=== PATIENT | male | born 1925 | race Caucasian/White ===

== ENCOUNTER 2017-05-01 10:53 | Emergency (ER) | payer OTHER, MEDICARE ==
[~2017-05-01] VITALS: Ht 177.8 cm; Wt 86.0 kg
[2017-05-01 10:56] VITALS: Ht 177.8 cm; Wt 86.0 kg
[2017-05-01] MEDS ORDERED: CEFTRIAXONE 1 GM/50 ML (PMX) 50 ML IVPB STA (11:20)
[2017-05-01] MEDS ORDERED: SODIUM CHLORIDE 0.9% 1L BAG IV* STA (11:20)
[2017-05-01] MEDS ORDERED: AZITHROMYCIN 500MG/NS (PMX) 250 ML IV STA (11:20)
[2017-05-01] MEDS ORDERED: ACETAMINOPHEN 500 MG TAB PO STA (11:42)
[2017-05-01 11:58] LABS: ADD UMIC YES; UR ASCORBIC ACID NEGATIVE (NEGATIVE); UR BILIRUBIN (Dip) NEGATIVE (NEGATIVE); UR BLOOD (Dip) 1+ mg/dL (NEGATIVE); UR CLARITY CLEAR (CLEAR); UR COLOR YELLOW (YELLOW); UR GLUCOSE (Dip) NEGATIVE (NEGATIVE); UR KETONES (Dip) NEGATIVE (NEGATIVE); UR LEUKOCYTE ESTERASE (Dip) TRACE Leu/ul (NEGATIVE); UR NITRITE (Dip) NEGATIVE (NEGATIVE); UR RBC 1 /HPF (0-5); UR SPECIFIC GRAVITY (Dip) 1.015 (1.003-1.030); UR TOTAL PROTEIN (Dip) 1+ mg/dl (NEGATIVE); UR UROBILINOGEN (Dip) NEGATIVE (NEGATIVE)
[2017-05-01 11:58] LABS: BASOPHILS % 0.3 % (0.0-2.0); EOSINOPHILS % 0.5 % (0.0-7.0); HEMATOCRIT 33.4 % (42.0-52.0); HEMOGLOBIN 11.2 g/dl (14.0-18.0); LYMPHOCYTES # 0.7 10^3/ul (0.8-2.9); LYMPHOCYTES % 8.5 % (15.0-51.0); MEAN CORPUSCULAR HEMOGLOBIN 29.7 pg (29.0-33.0); MEAN CORPUSCULAR HGB CONC 33.5 g/dl (32.0-37.0); MEAN CORPUSCULAR VOLUME 88.6 fl (82.0-101.0); MEAN PLATELET VOLUME 10.4 fl (7.4-10.4); MONOCYTE # 0.6 10^3/ul (0.3-0.9); MONOCYTES % 7.4 % (0.0-11.0); NEUTROPHIL # 6.5 10^3/ul (1.6-7.5); NEUTROPHILS % 82.9 % (39.0-77.0); PLATELET COUNT 131 10^3/UL (140-415); RED BLOOD COUNT 3.77 10^6/ul (4.70-6.10); RED CELL DISTRIBUTION WIDTH 14.4 % (11.5-14.5); WHITE BLOOD COUNT 7.8 10^3/ul (4.8-10.8)
--- NOTE | 2017-05-01 12:07 | RADRPT ---
PROCEDURE: XR Chest. CLINICAL INDICATION: Sepsis. TECHNIQUE: Single frontal view. COMPARISON: None. FINDINGS: The lungs are clear. The heart is mildly enlarged. There is no pleural effusion. There is no pneumothorax. IMPRESSION: 1. Mild cardiomegaly. 2. Otherwise unremarkable chest radiograph. RPTAT: QQ .Chon Castillo MD, MD Date Time Electronically viewed and signed by .Chon Castillo MD, MD on 05/01/2017 12:07 .R/
[2017-05-01 12:20] LABS: ALBUMIN 4.3 g/dl (3.3-4.9); ALBUMIN/GLOBULIN RATIO 1.19; BILIRUBIN,INDIRECT 0.3 mg/dl (0-1.1); BILIRUBIN,TOTAL 0.3 mg/dl (0.2-1.3); CALCIUM 9.3 mg/dl (8.4-10.2); CREATININE 2.12 mg/dl (0.61-1.24); POTASSIUM 4.8 mmol/L (3.5-5.1); TOTAL PROTEIN 7.9 g/dl (6.1-8.1)
[2017-05-01 12:30] LABS: TROPONIN-I 0.016 ng/ml (0.00-0.12)
[2017-05-01] MEDS ORDERED: OSELTAMIVIR 75 MG CAP PO ONE (12:30)
[2017-05-01] MEDS ORDERED: OSLT75C PO (14:29)
[2017-05-01] MEDS ORDERED: ACET500C5 PO (14:29)
--- NOTE | 2017-05-01 14:33 | ERD ---
ER Documentation Chief Complaint Chief Complaint bib ba 83 from day care for fever , chills HPI 89-year-old male with no significant past medical history presenting to the ER with fever and chills. He has had an associated cough with runny nose since yesterday. He denies any associated symptoms such as chest pain, shortness of breath, hemoptysis, dizziness, headache, abdominal pain, dysuria. He has had symptoms since yesterday. He has normal urine output but his family does state that he does not drink much water. ROS All systems reviewed and are negative except as per history of present illness. Medications Home Meds Active Scripts Acetaminophen* (Tylophen*) 500 Mg Capsule, 1 CAP PO Q6H Y for FEVER, #20 CAP Prov:KALEB VIRGEN MD 05/01/17 Oseltamivir Phosphate* (Tamiflu*) 75 Mg Capsule, 75 MG PO BID for 5 Days, CAP Prov:KALEB VIRGEN MD 05/01/17 Allergies Allergies: Coded Allergies: No Known Allergy (Unverified , 05/01/17) PMhx/Soc Medical and Surgical Hx: pt denies Surgical Hx History of Surgery: No Anesthesia Reaction: No Hx Neurological Disorder: No Hx Respiratory Disorders: No Hx Cardiac Disorders: No Hx Psychiatric Problems: No Hx Miscellaneous Medical Probl: No Hx Alcohol Use: No Hx Substance Use: No Hx Tobacco Use: No FmHx Family History: No diabetes Physical Exam Vitals Vital Signs Date Time Temp Pulse Resp B/P Pulse Ox O2 Delivery O2 Flow Rate FiO2 05/01/17 15:17 99.0 94 17 119/56 99 Room Air 05/01/17 12:45 101.2 116 13 149/68 97 Room Air 05/01/17 11:44 103.0 111 17 148/78 100 Room Air 05/01/17 10:56 102.6 119 18 160/70 95 Physical Exam Const: Pleasant, nontoxic, well-appearing, no distress Head: Atraumatic Eyes: Normal Conjunctiva ENT: Dry oral mucosa Neck: Full range of motion. No meningismus. Resp: Clear to auscultation bilaterally Cardio: Tachycardic with regular rhythm, no murmurs Abd: Soft, non tender, non distended. Normal bowel sounds Skin: No petechiae or rashes Back: No midline or flank tenderness Ext: No cyanosis, or edema Neur: Awake and alert oriented 3, strength and sensations intact in all 4 extremities Psych: Normal Mood and Affect Result Diagram: 05/01/17 1130 05/01/17 1130 Results 24 hrs Laboratory Tests Test 05/01/17 11:30 05/01/17 11:40 White Blood Count 7.810^3/ul Red Blood Count 3.7710^6/ul Hemoglobin 11.2g/dl Hematocrit 33.4% Mean Corpuscular Volume 88.6fl Mean Corpuscular Hemoglobin 29.7pg Mean Corpuscular Hemoglobin Concent 33.5g/dl Red Cell Distribution Width 14.4% Platelet Count 29976^3/UL Mean Platelet Volume 10.4fl Neutrophils % 82.9% Lymphocytes % 8.5% Monocytes % 7.4% Eosinophils % 0.5% Basophils % 0.3% Nucleated Red Blood Cells % 0.0/100WBC Neutrophils # 6.510^3/ul Lymphocytes # 0.710^3/ul Monocytes # 0.610^3/ul Eosinophils # 0.010^3/ul Basophils # 0.010^3/ul Nucleated Red Blood Cells # 0.010^3/ul Sodium Level 140mmol/L Potassium Level 4.8mmol/L Chloride Level 106mmol/L Carbon Dioxide Level 21mmol/L Anion Gap 18 Blood Urea Nitrogen 40mg/dl Creatinine 2.12mg/dl Glucose Level 107mg/dl Lactic Acid Level 1.3mmol/L Calcium Level 9.3mg/dl Total Bilirubin 0.3mg/dl Direct Bilirubin 0.00mg/dl Indirect Bilirubin 0.3mg/dl Aspartate Amino Transf (AST/SGOT) 22IU/L Alanine Aminotransferase (ALT/SGPT) 23IU/L Alkaline Phosphatase 64IU/L Troponin I 0.016ng/ml Total Protein 7.9g/dl Albumin 4.3g/dl Globulin 3.60g/dl Albumin/Globulin Ratio 1.19 Urine Color YELLOW Urine Clarity CLEAR Urine pH 5.0 Urine Specific [place] 1.015 Urine Ketones NEGATIVEmg/dL Urine Nitrite NEGATIVEmg/dL Urine Bilirubin NEGATIVEmg/dL Urine Urobilinogen NEGATIVEmg/dL Urine Leukocyte Esterase TRACELeu/ul Urine Microscopic RBC 1/HPF Urine Microscopic WBC 2/HPF Urine Hemoglobin 1+mg/dL Urine Glucose NEGATIVEmg/dL Urine Total Protein 1+mg/dl Current Medications Medications (Trade) Dose Ordered Sig/Steve Route PRN Reason Start Time Stop Time Status Last Admin Dose Admin Sodium Chloride 2670 ml 2,670 ml BOLUS OVER 2 HOURS STAT IV* 05/01/17 11:20 05/01/17 11:27 DC 05/01/17 11:47 Ceftriaxone Sodium 50 ml @ 100 mls/hr ONCE STAT IVPB 05/01/17 11:20 05/01/17 11:49 DC 05/01/17 11:47 Azithromycin (Zithromax 500mg/ NS (Pmx)) 250 ml @ 250 mls/hr ONCE STAT IV 05/01/17 11:20 05/01/17 12:19 DC 05/01/17 12:09 Acetaminophen (Tylenol Tab) 1,000 mg ONCE STAT PO 05/01/17 11:42 05/01/17 11:43 DC 05/01/17 11:47 Oseltamivir Phosphate (Tamiflu) 75 mg ONCE ONCE PO 05/01/17 12:30 05/01/17 12:31 DC 05/01/17 12:40 Procedures/MDM EMERGENT LABS AND DIAGNOSTIC STUDIES: Lab Results above were reviewed and interpreted by me. CBC shows mild anemia and mild thrombocytopenia BMP shows elevated BUN and creatinine with a ratio of about 20 troponin negative Lactate within normal limits UA without evidence of UTI Influenza test positive. 12-lead EKG was interpreted by Clementina Virgen MD: Sinus tachycardia with ventricular rate of 112 beats per minute Right bundle branch block, left anterior fascicular block No acute ST or T wave changes suggestive of acute ischemia or STEMI. Radiology Results as interpreted by Radiology below were reviewed by Rogerio Virgen MD: Chest x-ray IMPRESSION: 1. Mild cardiomegaly. 2. Otherwise unremarkable chest radiograph. RPTAT: QQ .Chon Castillo MD, MD Date Time Electronically viewed and signed by .Chon Castillo MD, on 05/01/2017 12:07 Initial Nursing notes reviewed. Previous Medical Records requested via the Electronic Health Record. EMERGENCY DEPARTMENT COURSE / MEDICAL DECISION MAKING: Patient is presenting with flulike symptoms and vitals notable for fever, tachycardia. His influenza test was positive. Labs showed evidence of acute versus chronic kidney disease. Given the BUN/creatinine ratio, it may be prerenal. He was given 30 cc/kg of IV fluids here. There is no evidence of severe sepsis or septic shock. There is no evidence of acute serious bacterial infection. Tamiflu was given here 1. I spoke with the patient and his daughter. They would prefer to go home instead of being admitted. I encouraged them to hydrate as much as possible. A prescription for Tamiflu is given. Follow-up with PCP was recommended for tomorrow for repeat BMP. I provided them with the results of their tests from today. Return precautions were given. Family seems reliable. Patient discharged in stable condition. Patient's blood pressure was elevated (>120/80) but appears stable without evidence of hypertensive emergency or urgency. The patient was counseled about the risks of hypertension and urged to pursue outpatient monitoring and therapy within a week with their primary care physician. Departure Diagnosis: Primary Impression: Influenza Additional Impression: Renal insufficiency Condition: Stable Patient Instructions: Influenza (Adult), Renal Insufficiency Referrals: RD GONG (PCP) Additional Instructions: Make an appointment with your primary care doctor tomorrow to check your kidney function blood tests again. If your symptoms are worsening and you are not improving as expected, return to the ER immediately. KALEB VIRGEN MD May 01, 2017 14:33
[2017-05-01 15:17] VITALS: BP 119/56; PULSE 94; RESP 17; TEMP 99
== END 2017-05-01 15:33 | disposition home or self-care (01) ==
LOC: E/R 10:53
DX: J10.1 Influenza due to other identified influenza virus with other respiratory manifestations (principal); N28.9 Disorder of kidney and ureter, unspecified; R00.2 Palpitations
CPT/HCPCS: 36415; 71010; 80053; 81001; 83605; 84484; 85025; 87040; 87086; 87400; 93005; 96365; 96366; 96367; J0456; J0696; J7030; Z7502; Z7610